=== PATIENT | female | born 1975 | race Two or more races ===

== ENCOUNTER 2018-03-26 19:40 | Emergency (ER) | payer OTHER ==
[~2018-03-26] VITALS: Ht 152.4 cm; Wt 63.0 kg
[2018-03-26 20:02] VITALS: BP 132/108
== END 2018-03-26 20:39 | disposition home or self-care (01) ==
LOC: ER 19:42
DX: R20.2 Paresthesia of skin (principal); I10 Essential (primary) hypertension; Z79.899 Other long term (current) drug therapy
CPT/HCPCS: 93005; 99283; A4606